=== PATIENT | female | born 1970 | race African-American/Black ===

== ENCOUNTER 2017-05-29 21:57 | Inpatient (IN) | payer OTHER ==
[2017-05-29] MEDS ORDERED: Acetaminophen 325 MG TAB ONE (22:25)
[2017-05-29] MEDS ORDERED: Nitroglycerin 2% Ointment 1 INCH/1 GM Packet ONE (22:25)
--- NOTE | 2017-05-29 22:33 | RAD ---
PORTABLE CHEST ONE VIEW 05/29/17 at 10:28 p.m. HISTORY: Chest pain. FINDINGS: Comparison is made with exam of 03/09/17. The heart size is normal. The lungs are well expanded without focal areas of consolidation, pneumoth oraces or pleural effusions. IMPRESSION: No radiographic evidence of acute cardiopulmonary process. POS: [facility]
[2017-05-29 22:37] LABS: #Eosinphils 0.2 thou/uL (0.0-0.7); #Lymphocytes 3.2 thou/uL (1.20-3.40); #Monocytes 0.6 thou/uL (0.11-0.59); %Basophils 0.1 % (0.0-1.0); %Eosinophils 2.8 % (0.0-10.0); %Lymphocytes 45.6 % (21.0-51.0); %Monocytes 8.2 % (0.0-10.0); Hematocrit 38.5 % (36.0-47.0); Mean Platelet Volume 6.3 fL (7.4-10.4); White Blood Cell (WBC) Count 6.9 thou/uL (4.8-10.8)
[2017-05-29 22:58] LABS: ALT (SGPT) 13 U/L (8-55); AST (SGOT) 17 U/L (5-34); Alkaline Phosphatase 133 U/L (40-150); Anion Gap 12 mmol/L (10-20); BUN (Urea Nitrogen) 10 mg/dL (7.0-18.7); Bilirubin, Total 0.4 mg/dL (0.2-1.2); CK (CPK) 90 U/L (29-168); Calc. Creatinine Clearance 0 mL/min (70-130); Calcium 9.1 mg/dL (7.8-10.44); Carbon Dioxide 24 mmol/L (22-29); Chloride 105 mmol/L (98-107); Estimated GFR-MDRD Greater than 90; Globulin 4.1 g/dL (2.4-3.5); Protein, Total 7.9 g/dL (6.0-8.3)
[2017-05-29 23:03] LABS: Troponin I Less than 0.010 ng/mL (< 0.028)
[2017-05-30] MEDS ORDERED: Metoclopramide HCl 10 MG/2 ML VIAL ONE (01:40)
[2017-05-30] MEDS ORDERED: diphenhydrAMINE 50 MG/ML VIAL ONE (01:40)
[2017-05-30] MEDS ORDERED: Enoxaparin Sodium 100 MG/ML SYRINGE ONE (01:40)
[2017-05-30 02:53] LABS: Troponin I Less than 0.010 ng/mL (< 0.028)
[2017-05-30 03:40] VITALS: BMI 41.9
[2017-05-30 06:04] LABS: Troponin I Less than 0.010 ng/mL (< 0.028)
--- NOTE | 2017-05-30 08:24 | CT ---
PRELIMINARY REPORT/[facility]/EMERGENCY AFTER HOURS PROCEDURE: EXAM: CT Angiography Chest With Intravenous Contrast CLINICAL HISTORY: 47 years old female; Pain; Chest pain; Type not specified; Patient HX: R/O pe TECHNIQUE: Multiplanar, multislice spiral CT scanning of the chest was performed following IV contrast administ ration from the sternal notch through the upper abdomen. Axial images were reconstructed at 2.5 mm i ntervals and slice thickness. Multiplanar reformatted images were created and reviewed. CONTRAST: 100 mL of ISOVUE administered intravenously. COMPARISON: None FINDINGS: Lungs: There is no pneumonia or mass. There is no atelectasis. Pleura: There is no pleural effusion. There is no pneumothorax. Heart: Heart size is normal. There is no pericardial effusion. Pulmonary vasculature: There is diminished density in the posterior segment of the right upper lobe pulmonary artery compared to the remaining pulmonary arteries. On the oblique images, this is more apparent as a filling defect and this is consistent with a pulmonary embolism. This is best seen on image 40, series 401. There are no additional pulmonary emboli. Aida and mediastinum: There is no hilar or mediastinal mass or adenopathy. Thoracic aorta/vascular: There is no thoracic aortic aneurysm or dissection. The imaged brachiocephalic arteries are unremarkable. Imaged upper abdomen: There are multiple approximately 1 cm and smaller nodules in the left upper qu adrant probably representing accessory splenules but cannot exclude small lymph nodes. Remainder of the imaged upper abdomen is unremarkable. Musculoskeletal system: Unremarkable Chest/body wall soft tissues: Unremarkable Thyroid: Unremarkable IMPRESSION: Right upper lobe pulmonary embolism. No acute pneumonia. THIS REPORT CONTAINS FINDINGS THAT MAY BE CRITICAL TO PATIENT CARE. The findings were verbally commu nicated via telephone conference with Emily Carvalho at 1:37 AM CDT on 05/30/2017. The findings were acknowledged and understood. Thank you for allowing us to participate in the care of your patient. Dictated and Authenticated by: Arthur Strong MD 05/30/2017 1:38 AM Central Time ([place] \T\ Carlos Alberto) FINAL REPORT CTA CHEST WITH 3D VOLUME RENDERING: FINDINGS/IMPRESSION: I agree with the above-provided preliminary interpretation provided above. Subtle filling defect involving the segmental/subsegmental branches of the right upper lobe indicati ng peripheral pulmonary embolus. POS: [facility]
--- NOTE | 2017-05-30 09:06 | HP ---
This is HELIO Anders-Osmar, dictating for Tom Hernández M.D. REASON FOR ADMISSION: Chest pain. HISTORY OF PRESENT ILLNESS: This is a pleasant 47-year-old female with no significant past medical history, who was actually seen in our clinic less than 3 months ago where she had atypical chest maile n. She has already been to the emergency room several times and OR was ruled out by serial cardiac enzymes; however, she was never admitted to the hospital. I even sent her to Cardiology less than 3 months ago or so where she did have a stress test that was unremarkable. She states she presented to the hospital after having chest pain, left-sided that lasted roughly 30 minutes. She did describe shortness of breath with this, but denied any radiation of her symptoms, no nausea, vomiting, or diaphoresis. Once upon evaluation in the emergency room, she had a series o f tests, first OR was ruled out by serial cardiac enzymes; however, she did have a CTA of the chest which did show pulmonary emboli. For this reason, she was admitted to the hospital for further eval uation and treatment. The patient denies any long road trips. She also denies being lay up in the bed. The patient state s she is quite active. The patient also denies any history of blood clotting disorder in her family or herself. PAST MEDICAL HISTORY: 1. GERD. 2. Chronic low back pain. 3. Questionable gastroparesis. 4. History of anxiety and depression. PAST SURGICAL HISTORY: 1. Hysterectomy in the past. 2. EGD showing chronic gastritis. 3. She did have cardiac catheterization also in 2012 that was negative for coronary artery disease. 4. Right great toe bunion surgery. 5. Left knee surgery. ALLERGIES: None. MEDICATIONS: Topamax 25 mg every day, omeprazole 20 mg every day, duloxetine 30 mg every day, verap catalina 120 mg t.i.d. SOCIAL HISTORY: She lives at home. She does not smoke. She does not drink alcohol. FAMILY HISTORY: Mother had hypertension. Father in a motor vehicle accident at age 62. REVIEW OF SYSTEMS: GENERAL: No weight gain or loss, weakness, fatigue, fever or chills. HEENT: N o diplopia, amaurosis fugax, tinnitus, sore throat or hoarseness. CARDIOVASCULAR: See history of p resent illness. PULMONARY: See history of present illness. GASTROINTESTINAL: Does have GERD. De nies any constipation, GI bleed or diarrhea. GENITOURINARY: No dysuria, nocturia, oliguria or poly uria. ENDOCRINE: No polyphagia, polydipsia or heat or cold intolerance. MUSCULOSKELETAL: Admits to arthralgias, especially in the knees. No lupus or myopathy. NEUROLOGIC: No history of TIA or s eizure. All systems are negative. PHYSICAL EXAMINATION: GENERAL: Pleasant female who appears to be in no acute distress. She denies currently any chest pa in. She also denies any shortness of breath at this time. VITAL SIGNS: Her blood pressure is 105/55, pulse 74, respirations 18. She is afebrile. NECK: Supple with no increased JVP or carotid bruit. Carotid had good upstroke with no thyromegaly . COR: Regular rate and rhythm with normal first and second heart sounds normal. There is no murmur, S3, S4, or thrills. CHEST: Symmetrical and clear to auscultation and percussion. ABDOMEN: Soft, nontender with normoactive bowel sounds. There is no bruit or organomegaly. EXTREMITIES: No edema or cyanosis. Palpable pedal pulses. SKIN: There is no evidence of ulcers, lesions, or rash. NEUROLOGIC: She is awake, alert, and oriented to person, place, and time. LABORATORY DATA AND IMAGING: Her CBC is normal. Her D-dimer was elevated. Her CMP was also normal . Her cardiac enzymes were normal as enumerated above. She again did have CTA which showed right u pper lobe PE. ASSESSMENT: 1. Chest pain secondary to right upper lobe pulmonary embolism. 2. Anxiety. 3. Depression. 4. History of migraine headaches. PLAN: 1. We will go ahead and check the patient for a blood clotting disorder, i.e. obtain an antiphospho lipid profile as well as a Leiden factor V. 2. We will also continue with blood thinners and we will also start Eliquis 10 mg b.i.d. The patie nt did verbalize understanding and all questions answered to satisfaction.
[2017-05-30] MEDS: Apixaban 5 MG TAB PO SCH ×2 (10:40→20:44)
[2017-05-30] MEDS: Topiramate 25 MG TAB PO SCH (10:50)
[2017-05-30 11:40] LABS: PTT 40.1 SEC (22.9-36.1); Prothrombin Time 13.3 SEC (12.0-14.7)
--- NOTE | 2017-05-30 12:57 | ULT ---
BILATERAL LOWER EXTREMITY VENOUS DUPLEX EXAM: 05/30/17 HISTORY: History of PE with a recent CT showing pulmonary embolus. Evaluation for source. Real time color doppler evaluation of the right and left lower extremities was performed from groin to calf. This includes evaluation of the common femoral, superficial and profunda femoral, saphenous , popliteal and trifurcation veins. This shows patent deep venous systems bilaterally. There is norm al compressibility and augmentation. There is no evidence of DVT. IMPRESSION: No evidence of DVT of either lower extremity. POS: [facility]
[2017-05-30] MEDS ORDERED: Enoxaparin Sodium 100 MG/ML SYRINGE SC SCH (13:00)
[2017-05-30] MEDS ORDERED: ISOVUE-370 76%-LOCM 1 ML ONE (13:37)
[2017-05-30] MEDS ORDERED: HYDROcodone/Acetaminophen 7.5/325 mg Tablet PO PRN (15:26)
--- NOTE | 2017-05-31 08:00 | PRG ---
DATE OF SERVICE: 05/31/2017. This is HELIO Anders-Osmar, dictating for Tom Hernández M.D. SUBJECTIVE: The patient is still having a little bit of chest pain. Her blood pressure is low this morning, but she is asymptomatic. She denies any dizziness, weakness, or felt like she was going t o pass out. Her thrombosis panel is still pending. PHYSICAL EXAMINATION: GENERAL: Upon evaluation, she is awake. She is alert and oriented. She appears to be in no acute distress. VITAL SIGNS: As above. NECK: Supple with no increased JVP or carotid bruit. Carotid had good upstroke with no thyromegaly . COR: Regular rate and rhythm. CHEST: Symmetrical. Clear to auscultation and percussion. ABDOMEN: Soft, nontender with normoactive bowel sounds. No bruit or organomegaly. EXTREMITIES: No edema or cyanosis. Palpable pedal pulses. SKIN: There is no evidence of ulcer, lesion, or rash. NEUROLOGIC: She is awake, alert, and oriented to person, place, and time. LABORATORY DATA: Her lower extremity venous Doppler was negative. ASSESSMENT: 1. Upper lobe pulmonary embolism. 2. History of depression and anxiety. PLAN: We will continue the patient on Eliquis. We will keep here until no chest pain and then send home on Eliquis.
[2017-05-31] MEDS ORDERED: FLU VACC QS2017-18 36 mo. & older 0.5 ML SYRINGE IM ONE (09:00)
[2017-05-31 09:23] LABS: DRVVT Screen 37.1 SEC (20-50)
[2017-05-31] MEDS: Apixaban 5 MG TAB PO SCH ×2 (09:53→19:59)
[2017-05-31] MEDS: Topiramate 25 MG TAB PO SCH (13:59)
[2017-05-31] MEDS ORDERED: Sodium Chloride 0.9% 0 ML ONE (15:30)
[2017-06-01 05:52] LABS: #Eosinphils 0.1 thou/uL (0.0-0.7); #Lymphocytes 2.6 thou/uL (1.20-3.40); #Monocytes 0.5 thou/uL (0.11-0.59); #Neutrophils 3.8 thou/uL (1.40-6.50); %Basophils 0.2 % (0.0-1.0); %Eosinophils 1.6 % (0.0-10.0); %Lymphocytes 36.9 % (21.0-51.0); %Monocytes 7.3 % (0.0-10.0); Hematocrit 38.8 % (36.0-47.0); Hematocrit 38.9 % (36.0-47.0); Mean Platelet Volume 6.3 fL (7.4-10.4); Red Blood Cell (RBC) Count 4.42 mill/uL (4.20-5.40)
[2017-06-01 06:13] LABS: Calc. Creatinine Clearance 167 mL/min (70-130); Estimated GFR-MDRD Greater than 90
[2017-06-01] MEDS: Apixaban 5 MG TAB PO SCH (09:48)
[2017-06-01] MEDS: Topiramate 25 MG TAB PO SCH (09:49)
[2017-06-01 12:39] VITALS: BP 136/80; TEMP 97.8
--- NOTE | 2017-06-01 17:02 | DIS ---
FINAL DIAGNOSES: 1. Pulmonary embolism. 2. Depression. 3. Anxiety. 4. Chest pain. COMPLICATIONS: None. PROCEDURES: None. CONSULTANTS: None. HOSPITAL COURSE: This is a pleasant female, who presents with chest pain. She did undergo a CTA an d was found to have upper lobe PE, therefore, started on anticoagulation therapy. DVT was ruled out by bilateral lower extremity venous Doppler. Her home medications were resumed. She did have lab w ork, which showed her CBC to be normal. Her CMP was normal. Her cardiac enzymes were normal. Her antiphospholipid panel/thrombus panel was pending. The patient had no chest pain and no shortness o f breath. Her vital signs were stable. DISCHARGE MEDICATIONS: She was discharged home on, 1. Eliquis 10 mg b.i.d. 2. Elavil 25 mg every day. 3. Motrin p.r.n. 4. Mobic 15 mg every day. 5. Protonix 40 mg every day. 6. Tramadol 50 mg q.6 hours p.r.n. pain. 7. Cymbalta 30 mg every day. 8. Topamax 25 mg every day. 9. Verapamil 120 mg t.i.d. DIET: Regular diet. ACTIVITIES: As tolerated by the patient. FOLLOWUP: Will be on Saturday and at that time, we will decrease her Eliquis. The patient verbali zed understanding and all questions were answered to satisfaction. Total time spent with this patient after reviewing the chart and writing orders and assessing the pa tient was 30 minutes. GABY Adners dictating a discharge summary on Tom Hernández M.D.
[2017-06-03 13:18] LABS: Protein C Activity 131 % (78-152)
[2017-06-03 15:20] LABS: Beta-2-GPI IgM Autoabs <10 SMU (.); Beta-2-Glycoprotein IgA Abs <10 SAU (.); Beta-2-Glycoprotein IgG Abs <10 SGU (.)
[2017-06-04 18:11] LABS: Activated Protein C Resistance 2.9 ratio (.)
== END 2017-06-01 12:47 | disposition home or self-care (01) | DRG 176 ==
LOC: ERS 21:57 → 2NO 05-30 01:55
PROVIDERS: ADMIT Specialist; ATTEND Specialist
DX: I26.99 Other pulmonary embolism without acute cor pulmonale (principal); F32.9 Major depressive disorder, single episode, unspecified; K21.9 Gastro-esophageal reflux disease without esophagitis; G89.29 Other chronic pain; M54.5 Low back pain; F41.9 Anxiety disorder, unspecified; M19.90 Unspecified osteoarthritis, unspecified site
CPT/HCPCS: 36415; 71010; 71275; 80053; 81240; 82553; 82565; 83090; 84484; 84702; 85014; 85018; 85025; 85049; 85240; 85250; 85300; 85303; 85305; 85307; 85379; 85598; 85610; 85613; 85730; 86146; 86147; 90471; 90682; 93005; 93970; 96361; 96372; 96374; 96375; A4216; G0008; J1200; J1650; J2765; Q2036

== ENCOUNTER 2017-06-20 22:19 | Emergency (ER) | payer OTHER ==
[2017-06-21] MEDS ORDERED: Promethazine 25 MG TAB ONE (00:06)
[2017-06-21] MEDS ORDERED: diphenhydrAMINE 50 MG/ML VIAL ONE (00:06)
[2017-06-21] MEDS ORDERED: methylPREDNISolone Sod Succ/PF 125 MG/2 ML VIAL ONE (00:06)
[2017-06-21] MEDS ORDERED: Promethazine HCl 25 MG/ML VIAL ONE (00:07)
== END 2017-06-21 03:38 | disposition home or self-care (01) ==
LOC: ERS 22:19
DX: R51 Headache (principal); K21.9 Gastro-esophageal reflux disease without esophagitis; Z86.711 Personal history of pulmonary embolism; F41.9 Anxiety disorder, unspecified; F32.9 Major depressive disorder, single episode, unspecified; Z79.899 Other long term (current) drug therapy
CPT/HCPCS: 96361; 96374; 96375; J1200; J2550; J2930

== ENCOUNTER 2017-07-09 09:55 | Emergency (ER) | payer OTHER ==
[~2017-07-09 09:55] MED LIST: ISOVUE-370 76%-LOCM 1 ML ONE
[2017-07-09 10:33] LABS: #Eosinphils 0.1 thou/uL (0.0-0.7); #Monocytes 0.4 thou/uL (0.11-0.59); #Neutrophils 2.8 thou/uL (1.40-6.50); %Basophils 0.1 % (0.0-1.0); %Eosinophils 1.4 % (0.0-10.0); %Lymphocytes 38.1 % (21.0-51.0); %Monocytes 7.3 % (0.0-10.0); Hematocrit 37.2 % (36.0-47.0); Mean Platelet Volume 6.6 fL (7.4-10.4); Red Blood Cell (RBC) Count 4.17 mill/uL (4.20-5.40); White Blood Cell (WBC) Count 5.2 thou/uL (4.8-10.8)
--- NOTE | 2017-07-09 10:50 | RAD ---
PORTABLE CHEST: History: Chest pain. Shortness of breath. Comparison: 05-29-17 FINDINGS: Lung mcrae remain clear. Heart and mediastinum are unremarkable. No evidence of vascular congestion. IMPRESSION: Unremarkable portable chest. POS: [facility]
[2017-07-09 10:56] LABS: ALT (SGPT) 12 U/L (8-55); AST (SGOT) 20 U/L (5-34); Alkaline Phosphatase 98 U/L (40-150); Anion Gap 11 mmol/L (10-20); BUN (Urea Nitrogen) 10 mg/dL (7.0-18.7); Bilirubin, Total 0.7 mg/dL (0.2-1.2); CK (CPK) 114 U/L (29-168); Calc. Creatinine Clearance 0 mL/min (70-130); Calcium 9.4 mg/dL (7.8-10.44); Carbon Dioxide 24 mmol/L (22-29); Chloride 104 mmol/L (98-107); Estimated GFR-MDRD Greater than 90; Globulin 4.3 g/dL (2.4-3.5); Lipase 13 U/L (8-78); Protein, Total 8.2 g/dL (6.0-8.3)
[2017-07-09 11:01] LABS: Troponin I Less than 0.010 ng/mL (< 0.028)
[2017-07-09] MEDS ORDERED: Morphine 4 MG/ML VIAL ONE (11:21)
[2017-07-09] MEDS ORDERED: Ondansetron HCl/PF 4 MG/2 ML Vial ONE (11:50)
--- NOTE | 2017-07-09 12:14 | CT ---
CTA THORAX WITH CONTRAST: (Computed Tomographic Angiography, chest(noncoronary) with contrast material, and image postprocessin g) (PE protocol) HISTORY: 47-year-old female with acute chest pain and dyspnea. History of prior pulmonary thromboembolism. TECHNIQUE: IV injection of iodinated contrast: 100 ml Isovue 370 Scan acquisition timing attempted to coincide with iodinated contrast bolus reaching maximal density in pulmonary arteries. 3D MIP reconstructions. FINDINGS: Pulmonary thromboembolism: None. Lungs: Clear. Pneumothorax: None. Pleural effusion: None. Thoracic aorta: No aneurysm or dissection. Mediastinum: No lymphadenopathy or other mass. Aida: No lymphadenopathy or other mass. IMPRESSION: Normal. akash POS: [facility]
== END 2017-07-09 13:46 | disposition home or self-care (01) ==
LOC: ERS 09:55
DX: R07.89 Other chest pain (principal); G43.909 Migraine, unspecified, not intractable, without status migrainosus; K21.9 Gastro-esophageal reflux disease without esophagitis; M19.90 Unspecified osteoarthritis, unspecified site; F41.9 Anxiety disorder, unspecified; F32.9 Major depressive disorder, single episode, unspecified; Z79.01 Long term (current) use of anticoagulants; Z79.899 Other long term (current) drug therapy
CPT/HCPCS: 71010; 71275; 80053; 82553; 83690; 83880; 84484; 85025; 85379; 93005; 96374; 96375; J2270; J2405

== ENCOUNTER 2017-10-21 10:33 | Outpatient (CLI) | payer OTHER | END 2017-10-21 10:34 | disposition home or self-care (01) | LOC: BICRAD 10:33 | PROVIDERS: ATTEND Internal Medicine Gastroenterology | DX: K59.01 Slow transit constipation (principal); R07.89 Other chest pain; R10.84 Generalized abdominal pain | CPT/HCPCS: 74019 ==

== ENCOUNTER 2017-10-28 16:21 | Outpatient (CLI) | payer OTHER | END 2017-10-28 16:22 | disposition home or self-care (01) | LOC: BICRAD 16:21 | PROVIDERS: ATTEND Nurse Practitioner Family | DX: M25.562 Pain in left knee (principal); M17.12 Unilateral primary osteoarthritis, left knee ==

== ENCOUNTER 2017-12-17 11:42 | Outpatient (CLI) | payer OTHER | END 2017-12-17 11:43 | disposition home or self-care (01) | LOC: BICRAD 11:42 | PROVIDERS: ATTEND Specialist | DX: M25.531 Pain in right wrist (principal); M25.532 Pain in left wrist; M85.641 Other cyst of bone, right hand ==

== ENCOUNTER 2017-12-23 12:28 | Outpatient (CLI) | payer OTHER | END 2017-12-23 12:29 | disposition home or self-care (01) | LOC: BICRAD 12:28 | PROVIDERS: ATTEND Specialist | DX: M19.021 Primary osteoarthritis, right elbow (principal) ==

== ENCOUNTER 2018-01-14 14:43 | Outpatient (CLI) | payer OTHER | END 2018-01-14 14:44 | disposition home or self-care (01) | LOC: BICRAD 14:43 | PROVIDERS: ATTEND Internal Medicine | DX: Z02.71 Encounter for disability determination (principal) | CPT/HCPCS: 72100 ==

== ENCOUNTER → 2018-01-15 | Day surgery (SDC) | payer OTHER | LOC: ENDO/OP 10:46 | PROVIDERS: ATTEND Internal Medicine Gastroenterology | DX: R07.89 Other chest pain (principal); K58.1 Irritable bowel syndrome with constipation; K59.03 Drug induced constipation | CPT/HCPCS: 91010; 91034 ==

== ENCOUNTER 2018-03-19 12:35 | Outpatient (CLI) | payer OTHER ==
[~2018-03-19 12:35] MED LIST changes: -ISOVUE-370 76%-LOCM 1 ML ONE; +Magnevist 469MG/ML 20 ML VIAL ONE
--- NOTE | 2018-03-19 14:54 | MRI ---
MRI OF RIGHT HUMERUS WITH AND WITHOUT CONTRAST ENHANCEMENT: History: Mass in right upper extremity. Patient states she feels a bump around her elbow region. FINDINGS: The area of concern was marked with two markers which are along the anterior and slightly more ulnar side of the more distal humerus. This examination was not tailored for evaluation of the elbow but the ulnar collateral ligament and l ateral collateral ligamentous complexes appear unremarkable. The common flexor and extensor tendon are also normal in appearance. The triceps tendon insertion is normal. The distal biceps tendon insertion was not visualized on this study. There is no evidence of any mass seen within the area of concern. I do not appreciate any definite fe atures that would suggest any type of lipoma. IMPRESSION: Unremarkable MRI of the distal right humerus region. No evidence of any mass or abnormal enhancement. No underlying muscle abnormality. POS: [facility]
== END 2018-03-19 12:36 | disposition home or self-care (01) ==
LOC: SCSMRI 12:35
PROVIDERS: ATTEND Orthopaedic Surgery
DX: R22.31 Localized swelling, mass and lump, right upper limb (principal)
CPT/HCPCS: A9579

== ENCOUNTER 2018-09-01 14:06 | Outpatient (CLI) | payer OTHER ==
--- NOTE | 2018-09-01 17:54 | MRI ---
MRI LEFT KNEE WITHOUT CONTRAST: HISTORY: Knee pain. COMPARISON: Knee radiograph from 2018. FINDINGS: Medial meniscus: There is a chronic undersurface flap tear and likely prior meniscectomy changes of the medial meniscal body and posterior horn. There is approximately 50% loss of volume with degenera tive signal extending to the root attachment. Lateral meniscus: Intact. The ACL, PCL, MCL, and LCL are all intact. Extensor mechanism: Low grade proximal patella tendinosis. The quadriceps tendon and patella are in tact. CARTILAGE Patellofemoral compartment: Intact. Medial compartment: Intact. Lateral compartment: Intact. Muscles: Normal muscle signal and bulk. IMPRESSION: 1. Likely prior partial meniscectomy change of the body and posterior horn of the medial meniscus wi th loss of volume, approximately 50%. 2. There is subsequent small medial compartment peripheral rim osteophytes of the medial femoral con dyle and medial tibial plateau. POS: [facility]
== END 2018-09-01 14:07 | disposition home or self-care (01) ==
LOC: SCSMRI 14:06
PROVIDERS: ATTEND Specialist
DX: M25.562 Pain in left knee (principal); M25.762 Osteophyte, left knee; Z98.890 Other specified postprocedural states

== ENCOUNTER 2018-09-24 09:41 | Outpatient (CLI) | payer OTHER ==
--- NOTE | 2018-09-24 10:17 | RAD ---
TWO TO 3 VIEW LUMBAR SPINE SERIES: INDICATION: Back pain. FINDINGS: Lumbar spine vertebral body height and alignment are maintained. Disk space heights are preserved wi th the exception of slight narrowing at the L5-S1 level. There is mild facet sclerosis inferiorly. IMPRESSION: Mild degenerative change without acute osseous abnormality of the lumbar spine. POS: [facility]
== END 2018-09-24 09:42 | disposition home or self-care (01) ==
LOC: BICRAD 09:41
PROVIDERS: ATTEND Specialist
DX: M54.5 Low back pain (principal); M47.816 Spondylosis without myelopathy or radiculopathy, lumbar region
CPT/HCPCS: 72100

== ENCOUNTER 2019-04-27 10:15 | Outpatient (CLI) | payer OTHER ==
--- NOTE | 2019-04-27 12:09 | RAD ---
LUMBAR SPINE SERIES 3 VIEWS: Date: 04/27/19 HISTORY: Back pain. FINDINGS: Vertebral bodies are normal in height. Small osteophytes are seen along the course of the spine witho ut disc narrowing. Pedicles are intact. No spondylolisthesis. IMPRESSION: Minimal arthritic changes of the spine. POS: [facility]
== END 2019-04-27 10:16 | disposition home or self-care (01) ==
LOC: RAD 10:15
PROVIDERS: ATTEND Specialist
DX: M48.061 Spinal stenosis, lumbar region without neurogenic claudication (principal); M54.5 Low back pain; M46.96 Unspecified inflammatory spondylopathy, lumbar region
CPT/HCPCS: 72100

== ENCOUNTER 2019-06-10 07:43 | Emergency (ER) | payer OTHER ==
[2019-06-10] MEDS ORDERED: Acetaminophen 500 MG TAB ONE (08:18)
[2019-06-10 09:17] LABS: #Eosinphils 0.1 thou/uL (0.0-0.7); #Lymphocytes 2.6 thou/uL (1.20-3.40); #Monocytes 0.4 thou/uL (0.11-0.59); #Neutrophils 2.7 thou/uL (1.40-6.50); %Basophils 0.6 % (0.0-1.0); %Eosinophils 1.2 % (0.0-10.0); %Lymphocytes 43.9 % (21.0-51.0); %Monocytes 7.2 % (0.0-10.0); %Neutrophils 47.1 % (42.0-75.0); Hemoglobin 13.5 g/dL (12.0-16.0); Mean Corpuscular HGB CONC 33.3 g/dL (32.0-36.0); Mean Corpuscular Hemoglobin 28.3 pg (27.0-31.0); Mean Corpuscular Volume 84.7 fL (78.0-98.0); Mean Platelet Volume 7.2 fL (7.4-10.4); Platelet Count 305 thou/uL (130-400); RBC Distribution Width 13.5 % (11.5-14.5); Red Blood Cell (RBC) Count 4.77 mill/uL (4.20-5.40); White Blood Cell (WBC) Count 5.8 thou/uL (4.8-10.8)
[2019-06-10 09:38] LABS: ALT (SGPT) 12 U/L (8-55); AST (SGOT) 17 U/L (5-34); Albumin 4.4 g/dL (3.5-5.0); Alkaline Phosphatase 110 U/L (40-110); Anion Gap 13 mmol/L (10-20); BUN (Urea Nitrogen) 11 mg/dL (7.0-18.7); Bilirubin, Total 0.6 mg/dL (0.2-1.2); Calc. Creatinine Clearance 0 mL/min (70-130); Calcium 9.6 mg/dL (7.8-10.44); Carbon Dioxide 24 mmol/L (22-29); Chloride 106 mmol/L (98-107); Estimated GFR-MDRD Greater than 90; Globulin 3.8 g/dL (2.4-3.5); Glucose 95 mg/dL (70-105); Potassium 4.5 mmol/L (3.5-5.1); Protein, Total 8.2 g/dL (6.0-8.3); Sodium 138 mmol/L (136-145)
[2019-06-10] MEDS ORDERED: diphenhydrAMINE 50 MG/ML VIAL ONE (09:39)
[2019-06-10] MEDS ORDERED: Ketorolac Tromethamine 30 MG/ML VIAL ONE (09:39)
[2019-06-10] MEDS ORDERED: Promethazine HCl 25 MG/ML VIAL ONE (09:39)
--- NOTE | 2019-06-10 12:28 | CT ---
CT HEAD NONCONTRAST DATE: 06/10/19 HISTORY: Headache. COMPARISON: 01/11/15. FINDINGS: There is no evidence of acute intracranial hemorrhage or infarct. The ventricles appear normal in siz e, shape, and position. There is no mass effect or shift of midline structures. Visualized paranasal sinuses remain well aerated. IMPRESSION: No acute intracranial abnormalities are demonstrated. POS: [facility]
== END 2019-06-10 13:12 | disposition home or self-care (01) ==
LOC: ERS 07:43
DX: G43.909 Migraine, unspecified, not intractable, without status migrainosus (principal); K21.9 Gastro-esophageal reflux disease without esophagitis; M19.90 Unspecified osteoarthritis, unspecified site; F41.9 Anxiety disorder, unspecified; F32.9 Major depressive disorder, single episode, unspecified; Z86.711 Personal history of pulmonary embolism; Z79.899 Other long term (current) drug therapy; Z79.01 Long term (current) use of anticoagulants
CPT/HCPCS: 70450; 80053; 85025; 96365; 96366; 96375; J1200; J1885; J2550

== ENCOUNTER 2019-07-06 13:45 | Outpatient (CLI) | payer OTHER ==
--- NOTE | 2019-07-06 16:29 | RAD ---
LUMBAR SPINE SERIES 3 VIEWS: Date: 07/06/19 HISTORY: Chronic low back pain. COMPARISON: 04/27/19 study. FINDINGS: Vertebral bodies are normal in height. Small osteophytes are seen without significant disc narrowing. Pedicles are intact. No spondylolisthesis. IMPRESSION: Minimal arthritic changes of the spine. POS: [facility]
== END 2019-07-06 13:46 | disposition home or self-care (01) ==
LOC: SCSRAD 13:45
PROVIDERS: ATTEND Psychiatry & Neurology Neurology
DX: M54.5 Low back pain (principal); M47.816 Spondylosis without myelopathy or radiculopathy, lumbar region
CPT/HCPCS: 72100

== ENCOUNTER 2019-11-19 13:34 | Outpatient (CLI) | payer OTHER ==
--- NOTE | 2019-11-19 14:23 | RAD ---
TWO VIEWS OF THE CHEST: 11/19/19 COMPARISON: 10/05/15 HISTORY: Pain in the throat and chest. Left chest pain. FINDINGS: Two views of the chest show normal sized cardiomediastinal silhouette. There is no evidence of consol idation, mass, or pleural effusion. The bones are unremarkable. IMPRESSION: No evidence of acute cardiopulmonary disease. POS: [facility]
== END 2019-11-19 13:35 | disposition home or self-care (01) ==
LOC: BICRAD 13:34
PROVIDERS: ATTEND Specialist
DX: J98.11 Atelectasis (principal); R07.9 Chest pain, unspecified; R07.0 Pain in throat
CPT/HCPCS: 71046

== ENCOUNTER 2019-12-08 09:58 | Outpatient (CLI) | payer OTHER ==
--- NOTE | 2019-12-08 13:49 | MMO ---
Bilateral MAMMO Bilat Screen DDI. CLINICAL HISTORY: Patient is 49 years old and is seen for screening. The patient has no family history of breast cancer. The patient has no personal history of cancer. VIEWS: The views performed were: bilateral craniocaudal and bilateral mediolateral oblique. FILMS COMPARED: The present examination has been compared to prior imaging studies performed at [facility] on 12/15/2001, and at [facility] on 05/17/2016. This study has been interpreted with the assistance of computer-aided detection. MAMMOGRAM FINDINGS: The breasts are heterogeneously dense, which could obscure a lesion on mammography. There is a questionable nodular density in the left mid breast on CC view. In the right breast, there are no suspicious masses, calcifications or areas of architectural distortion. IMPRESSION: FINDING IN THE LEFT BREAST REQUIRES ADDITIONAL EVALUATION. SPOT COMPRESSION IS RECOMMENDED. AN ULTRASOUND EXAM IS RECOMMENDED IF NEEDED. ADDITIONAL IMAGING. ACR BI-RADS Category 0 - Incomplete: Need additional imaging evaluation. [facility] will notify the patient of the need for additional imaging services. MAMMOGRAPHY NOTE: 1. A negative mammogram report should not delay a biopsy if a dominant of clinically suspicious mass is present. 2. Approximately 10% to 15% of breast cancers are not detected by mammography. 3. Adenosis and dense breasts may obscure an underlying neoplasm. Reported by: NISA WANG MD Electonically Signed: [id number]
== END 2019-12-08 09:59 | disposition home or self-care (01) ==
LOC: BICMAMMO 09:58
PROVIDERS: ATTEND Nurse Practitioner Family
DX: Z12.31 Encounter for screening mammogram for malignant neoplasm of breast (principal)
CPT/HCPCS: 77067

== ENCOUNTER 2019-12-15 10:08 | Outpatient (CLI) | payer OTHER ==
--- NOTE | 2019-12-15 10:31 | MMO ---
Left Breast MAMMO Unilat Diag DDI LT+VIKTOR. CLINICAL HISTORY: Patient is 49 years old and is seen for diagnostic exam. The patient has no family history of breast cancer. The patient has no personal history of cancer. VIEWS: The views performed were: left craniocaudal with tomosynthesis and left mediolateral with tomosynthesis. FILMS COMPARED: The present examination has been compared to prior imaging studies performed at [facility] on 12/15/2001, and at [facility] [place] on 05/17/2016, 12/08/2019 and 12/15/2019. This study has been interpreted with the assistance of computer-aided detection. MAMMOGRAM FINDINGS: The breast is heterogeneously dense, which could obscure a lesion on mammography. Additional views were performed. The previously seen abnormality is not definitely seen on the current study. There are no suspicious masses, suspicious calcifications, or new areas of architectural distortion. IMPRESSION: THERE IS NO MAMMOGRAPHIC EVIDENCE OF MALIGNANCY. A ROUTINE FOLLOW-UP MAMMOGRAM IN 1 YEAR IS RECOMMENDED. THE RESULTS OF THIS EXAM WERE SENT TO THE PATIENT. ACR BI-RADS Category 2 - Benign finding MAMMOGRAPHY NOTE: 1. A negative mammogram report should not delay a biopsy if a dominant of clinically suspicious mass is present. 2. Approximately 10% to 15% of breast cancers are not detected by mammography. 3. Adenosis and dense breasts may obscure an underlying neoplasm. Reported by: NISA WANG MD Electonically Signed: [id number]
== END 2019-12-15 10:09 | disposition home or self-care (01) ==
LOC: BICMAMMO 10:08
PROVIDERS: ATTEND Nurse Practitioner Family
DX: N63.20 Unspecified lump in the left breast, unspecified quadrant (principal)
CPT/HCPCS: G0279

== ENCOUNTER 2020-01-11 09:01 | Emergency (ER) | payer OTHER | END 2020-01-11 09:40 | disposition home or self-care (01) | LOC: ERS 09:01 | DX: K02.9 Dental caries, unspecified (principal); K21.9 Gastro-esophageal reflux disease without esophagitis; M19.90 Unspecified osteoarthritis, unspecified site; Z86.711 Personal history of pulmonary embolism; F41.9 Anxiety disorder, unspecified; F32.9 Major depressive disorder, single episode, unspecified; Z79.899 Other long term (current) drug therapy | CPT/HCPCS: 99282 ==

== ENCOUNTER 2020-09-15 12:37 | Outpatient (CLI) | payer OTHER ==
--- NOTE | 2020-09-15 15:23 | RAD ---
RIGHT ANKLE THREE VIEWS: 09/15/20 HISTORY: Ankle pain and swelling. No history of injury. There is soft tissue swelling adjacent to the lateral malleolus. I do not appreciate any fracture. Mi nimal arthritic changes seen. IMPRESSION: No acute injury. POS: [facility]
== END 2020-09-15 12:38 | disposition home or self-care (01) ==
LOC: BICRAD 12:37
PROVIDERS: ATTEND Specialist
DX: M25.571 Pain in right ankle and joints of right foot (principal)

== ENCOUNTER 2020-10-25 09:48 | Outpatient (CLI) | payer OTHER | END 2020-10-25 09:49 | disposition home or self-care (01) | LOC: BICRAD 09:48 | PROVIDERS: ATTEND Physician Assistant Medical | DX: K21.9 Gastro-esophageal reflux disease without esophagitis (principal); R06.02 Shortness of breath | CPT/HCPCS: 71046 ==

== ENCOUNTER 2021-05-21 22:57 | Emergency (ER) | payer OTHER ==
[~2021-05-21 22:57] MED LIST changes: +Iopamidol-370 76% 500 ML 1 ML ONE; -Magnevist 469MG/ML 20 ML VIAL ONE
[2021-05-22] MEDS ORDERED: Ketorolac Tromethamine 30 MG/ML VIAL ONE (00:02)
[2021-05-22 00:17] LABS: #Basophils 0.1 thou/uL (0.0-0.2); #Lymphocytes 1.6 thou/uL (1.20-3.40); #Monocytes 0.4 thou/uL (0.11-0.59); #Neutrophils 5.9 thou/uL (1.40-6.50); %Basophils 1.6 % (0.0-1.0); %Eosinophils 0.1 % (0.0-10.0); %Lymphocytes 20.3 % (21.0-51.0); %Monocytes 4.8 % (0.0-10.0); %Neutrophils 73.3 % (42.0-75.0); Hemoglobin 12.8 g/dL (12.0-16.0); Mean Corpuscular HGB CONC 33.4 g/dL (32.0-36.0); Mean Corpuscular Hemoglobin 28.8 pg (27.0-31.0); Mean Corpuscular Volume 86.3 fL (78.0-98.0); Platelet Count 328 thou/uL (130-400); RBC Distribution Width 13.7 % (11.5-14.5); Red Blood Cell (RBC) Count 4.44 mill/uL (4.20-5.40)
[2021-05-22 00:31] LABS: ALT (SGPT) 17 U/L (8-55); AST (SGOT) 21 U/L (5-34); Albumin 4.3 g/dL (3.5-5.0); Alkaline Phosphatase 111 U/L (40-110); Anion Gap 12 mmol/L (10-20); BUN (Urea Nitrogen) 14 mg/dL (7.0-18.7); Bilirubin, Total 0.4 mg/dL (0.2-1.2); Calc. Creatinine Clearance 0 mL/min (70-130); Calcium 10.1 mg/dL (7.8-10.44); Carbon Dioxide 26 mmol/L (22-29); Chloride 103 mmol/L (98-107); Globulin 4.4 g/dL (2.4-3.5); Glucose 112 mg/dL (70-105); Potassium 4.2 mmol/L (3.5-5.1); Protein, Total 8.7 g/dL (6.0-8.3); Sodium 137 mmol/L (136-145)
[2021-05-22] MEDS ORDERED: Ondansetron PF 4 MG/2 ML Vial ONE (02:45)
[2021-05-22] MEDS ORDERED: Morphine 4 MG/ML VIAL ONE (02:45)
== END 2021-05-22 08:00 | disposition home or self-care (01) ==
LOC: ERS 22:57
DX: R07.89 Other chest pain (principal); K21.9 Gastro-esophageal reflux disease without esophagitis; M19.90 Unspecified osteoarthritis, unspecified site; G43.909 Migraine, unspecified, not intractable, without status migrainosus; Z86.711 Personal history of pulmonary embolism; Z79.899 Other long term (current) drug therapy
CPT/HCPCS: 36415; 71045; 71275; 80053; 84484; 85025; 93005; 96374; 96375; J1885; J2270; J2405; Q9967

== ENCOUNTER 2021-10-03 07:26 | Outpatient (CLI) | payer OTHER | END 2021-10-03 07:27 | disposition home or self-care (01) | LOC: ULT 07:26 | PROVIDERS: ATTEND Physician Assistant Medical | DX: B18.1 Chronic viral hepatitis B without delta-agent (principal); R00.2 Palpitations; K76.9 Liver disease, unspecified | CPT/HCPCS: 76700 ==

== ENCOUNTER 2021-12-22 17:05 | Emergency (ER) | payer OTHER ==
[2021-12-22] MEDS ORDERED: Mag-Al 1200 mg/1200 mg/30 ML UDCUP ONE (17:29)
[2021-12-22] MEDS ORDERED: Aspirin Chewable 81 MG TAB ONE (17:29)
[2021-12-22] MEDS ORDERED: Lidocaine Viscous Sol 2% 15 ml UD Cup ONE (17:29)
[2021-12-22 17:55] LABS: #Eosinphils 0.1 thou/uL (0.0-0.7); #Lymphocytes 2.5 thou/uL (1.20-3.40); #Monocytes 0.6 thou/uL (0.11-0.59); #Neutrophils 3.6 thou/uL (1.40-6.50); %Basophils 0.1 % (0.0-1.0); %Eosinophils 1.1 % (0.0-10.0); %Lymphocytes 37.6 % (21.0-51.0); %Monocytes 8.2 % (0.0-10.0); Hemoglobin 11.9 g/dL (12.0-16.0); Mean Corpuscular HGB CONC 31.6 g/dL (32.0-36.0); Mean Corpuscular Hemoglobin 27.2 pg (27.0-31.0); Mean Corpuscular Volume 86.1 fL (78.0-98.0); Mean Platelet Volume 6.8 fL (7.4-10.4); Platelet Count 317 thou/uL (130-400); RBC Distribution Width 14.7 % (11.5-14.5); Red Blood Cell (RBC) Count 4.37 mill/uL (4.20-5.40); White Blood Cell (WBC) Count 6.7 thou/uL (4.8-10.8)
[2021-12-22 18:05] LABS: BHCG - Serum Negative (NEGATIVE); Pregs Control Background? CLEAR/WHITE (CLR/WHITE); Pregs Control Bar Appear? YES (CONTROL BAR)
[2021-12-22 18:20] LABS: ALT (SGPT) 10 U/L (8-55); AST (SGOT) 16 U/L (5-34); Albumin 3.8 g/dL (3.5-5.0); Alkaline Phosphatase 102 U/L (40-110); Anion Gap 9 mmol/L (10-20); BUN (Urea Nitrogen) 11 mg/dL (7.0-18.7); Bilirubin, Total 0.3 mg/dL (0.2-1.2); Calc. Creatinine Clearance 0 mL/min (70-130); Carbon Dioxide 30 mmol/L (22-29); Chloride 100 mmol/L (98-107); Glucose 98 mg/dL (70-105); Potassium 3.9 mmol/L (3.5-5.1); Protein, Total 7.8 g/dL (6.0-8.3); Sodium 135 mmol/L (136-145)
[2021-12-22] MEDS ORDERED: Morphine 4 MG/ML VIAL ONE (18:46)
[2021-12-22] MEDS ORDERED: Ondansetron PF 4 MG/2 ML Vial ONE (18:46)
== END 2021-12-22 20:32 | disposition home or self-care (01) ==
LOC: ERS 17:05
DX: R07.89 Other chest pain (principal); K21.9 Gastro-esophageal reflux disease without esophagitis; M19.90 Unspecified osteoarthritis, unspecified site; Z86.711 Personal history of pulmonary embolism; Z79.899 Other long term (current) drug therapy; Z79.01 Long term (current) use of anticoagulants
CPT/HCPCS: 36415; 71045; 71275; 80053; 84484; 84703; 85025; 85379; 93005; 96374; 96375; J2270; J2405; Q9967

== ENCOUNTER 2021-12-29 10:23 | Emergency (ER) | payer OTHER | END 2021-12-29 11:48 | disposition home or self-care (01) | LOC: ERS 10:23 | DX: H60.91 Unspecified otitis externa, right ear (principal); K21.9 Gastro-esophageal reflux disease without esophagitis; M19.90 Unspecified osteoarthritis, unspecified site; Z86.711 Personal history of pulmonary embolism | CPT/HCPCS: 99282 ==

== ENCOUNTER 2023-04-11 13:03 | Outpatient (CLI) | payer OTHER | END 2023-04-11 13:04 | disposition home or self-care (01) | LOC: RAD 13:03 | PROVIDERS: ATTEND Specialist | DX: M54.9 Dorsalgia, unspecified (principal); M47.816 Spondylosis without myelopathy or radiculopathy, lumbar region | CPT/HCPCS: 72100 ==

== ENCOUNTER 2023-04-20 10:59 | Emergency (ER) | payer OTHER ==
[2023-04-20] MEDS ORDERED: HYDROcodone/Acetaminophen 5/325 mg Tablet ONE (12:03)
== END 2023-04-20 13:21 | disposition home or self-care (01) ==
LOC: ERS 10:59
DX: M25.512 Pain in left shoulder (principal)
CPT/HCPCS: 93005

== ENCOUNTER 2023-05-12 13:50 | Emergency (ER) | payer OTHER ==
[2023-05-12] MEDS ORDERED: Acetaminophen 500 MG TAB ONE (14:16)
== END 2023-05-12 15:53 | disposition home or self-care (01) ==
LOC: ERS 13:50
DX: L03.116 Cellulitis of left lower limb (principal); K21.9 Gastro-esophageal reflux disease without esophagitis; E11.9 Type 2 diabetes mellitus without complications

== ENCOUNTER 2023-05-14 13:36 | Emergency (ER) | payer OTHER | END 2023-05-14 15:25 | disposition home or self-care (01) | LOC: ERS 13:36 | DX: L03.116 Cellulitis of left lower limb (principal); K21.9 Gastro-esophageal reflux disease without esophagitis; E11.9 Type 2 diabetes mellitus without complications; Z86.711 Personal history of pulmonary embolism; Z79.899 Other long term (current) drug therapy | CPT/HCPCS: 99283 ==

== ENCOUNTER 2023-06-06 12:44 | Outpatient (CLI) | payer OTHER | END 2023-06-06 12:45 | disposition home or self-care (01) | LOC: BICMAMMO 12:44 | PROVIDERS: ATTEND Specialist | DX: Z12.31 Encounter for screening mammogram for malignant neoplasm of breast (principal) | CPT/HCPCS: 77067 ==

== ENCOUNTER 2023-06-21 07:00 | Outpatient (CLI) | payer OTHER | END 2023-06-21 07:01 | disposition home or self-care (01) | LOC: BICULT 07:00 | PROVIDERS: ATTEND Plastic Surgery Surgery of the Hand | DX: M54.12 Radiculopathy, cervical region (principal); E01.0 Iodine-deficiency related diffuse (endemic) goiter; E04.2 Nontoxic multinodular goiter | CPT/HCPCS: 72040; 76536 ==

== ENCOUNTER 2023-06-30 17:38 | Emergency (ER) | payer OTHER ==
[~2023-06-30 17:38] MED LIST changes: -Iopamidol-370 76% 500 ML 1 ML ONE; +Iopamidol-370 76% 500 ML MDV (1 ML CHARGE) ONE
[2023-06-30] MEDS ORDERED: Acetaminophen 500 MG TAB ONE (20:29)
[2023-06-30 20:31] LABS: Hematocrit 39.2 % (36.0-47.0); Hemoglobin 12.3 g/dL (12.0-16.0); Mean Corpuscular HGB CONC 31.4 g/dL (32.0-36.0); Mean Corpuscular Hemoglobin 27.5 pg (27.0-31.0); Mean Corpuscular Volume 87.5 fl (78.0-98.0); Mean Platelet Volume 9.1 fL (7.4-10.4); Platelet Count 251 10x3/uL (130-400); RBC Distribution Width 14.7 % (11.5-14.5); Red Blood Cell (RBC) Count 4.48 mill/uL (4.20-5.40); White Blood Cell (WBC) Count 4.7 10x3/uL (4.8-10.8)
[2023-06-30 20:36] LABS: Delete Auto Diff?? YES; Manual Diff?? YES
[2023-06-30 20:50] LABS: BHCG - Serum Negative (NEGATIVE); Pregs Control Background? CLEAR/WHITE (CLR/WHITE); Pregs Control Bar Appear? YES (CONTROL BAR)
[2023-06-30 20:57] LABS: ALT (SGPT) 11 U/L (8-55); AST (SGOT) 19 U/L (5-34); Albumin 3.6 g/dL (3.5-5.0); Alkaline Phosphatase 94 U/L (40-110); Anion Gap 11 mmol/L (10-20); BUN (Urea Nitrogen) 11 mg/dL (9.8-20.1); Bilirubin, Total 0.2 mg/dL (0.2-1.2); Calc. Creatinine Clearance 0 mL/min (70-130); Calcium 9.5 mg/dL (7.8-10.44); Carbon Dioxide 28 mmol/L (22-29); Chloride 103 mmol/L (98-107); Estimated GFR 89; Globulin 4.3 g/dL (2.4-3.5); Glucose 95 mg/dL (70-105); Potassium 3.9 mmol/L (3.5-5.1); Protein, Total 7.9 g/dL (6.0-8.3); Sodium 138 mmol/L (136-145)
[2023-06-30 21:17] LABS: Band 2 % (5-11); CellaVision Operator ID lab.abc; Eosinophils 2 % (0-10); Lymphocytes 27 % (21-51); Monocytes 9 % (0-10); Neutrophil 52 % (42-75); Platelet Adequacy Comment Platelets Normal; RBC Morphology Within Normal Limits; Reactive Lymphocytes 7 % (0-10); Total Cell Count 100
[2023-06-30 21:32] LABS: SARS-CoV-2 NAA Rapid Test Not Detected (NotDetected)
== END 2023-06-30 23:33 | disposition home or self-care (01) ==
LOC: ERS 17:38
DX: B34.9 Viral infection, unspecified (principal); E11.9 Type 2 diabetes mellitus without complications; Z20.822 Contact with and (suspected) exposure to COVID-19
CPT/HCPCS: 36415; 70492; 71045; 80053; 84703; 85025; 86140; 87081; 87430; Q9967

== ENCOUNTER 2023-10-05 19:00 | Emergency (ER) | payer OTHER ==
[2023-10-05 20:54] LABS: Influenza A by NAA Not Detected (NotDetected); Influenza B by NAA Not Detected (NotDetected); SARS-CoV-2 NAA Rapid Test Not Detected (NotDetected)
== END 2023-10-05 21:42 | disposition home or self-care (01) ==
LOC: ERS 19:00
DX: J02.9 Acute pharyngitis, unspecified (principal); B37.0 Candidal stomatitis; E11.9 Type 2 diabetes mellitus without complications; K21.9 Gastro-esophageal reflux disease without esophagitis; G43.909 Migraine, unspecified, not intractable, without status migrainosus; Z55.6 Problems related to health literacy; Z79.899 Other long term (current) drug therapy
CPT/HCPCS: 71046

== ENCOUNTER 2024-03-31 18:53 | Emergency (ER) | payer OTHER ==
[2024-03-31 20:10] LABS: Bacteria/HPF 1+ HPF (None Seen); Bilirubin Negative (Negative); Blood, Urine Trace (Negative); CAUTI Indications for Culture Dysuria,urgency,freq; Clarity Clear (Clear); Glucose, Urine (Dipstick) Normal (Negative); Ketone, Urine Trace mg/dL (Negative); Leukocyte 500 Leu/uL (Negative); Nitrite Negative (Negative); Protein, Urine (Dipstick) 30 mg/dL (Neg-Trace); Specific Gravity, Urine 1.037 (1.002-1.036); Squamous Epithelial 0-3 HPF (0-3); Transitional Epithelial 0-3 HPF (None Seen); WBC/HPF Greater than 50 HPF (0-3); pH, Urine 5.5 (5.0-9.0)
[2024-03-31 20:12] LABS: Urine Culture Reflex Yes Yes
== END 2024-03-31 21:51 | disposition home or self-care (01) ==
LOC: ERS 18:53
DX: J06.9 Acute upper respiratory infection, unspecified (principal); N39.0 Urinary tract infection, site not specified; E11.9 Type 2 diabetes mellitus without complications; K21.9 Gastro-esophageal reflux disease without esophagitis; Z79.899 Other long term (current) drug therapy
CPT/HCPCS: 81001; 87077; 87086; 87186; 99283

== ENCOUNTER 2024-08-29 04:38 | Emergency (ER) | payer OTHER ==
[2024-08-29] MEDS ORDERED: Ketorolac Tromethamine 30 MG (1 mL) VIAL ONE (04:52)
[2024-08-29] MEDS ORDERED: Morphine 4 MG/ML VIAL ONE (04:52)
[2024-08-29] MEDS ORDERED: Ondansetron PF 4 MG/2 ML Vial ONE (04:52)
[2024-08-29 05:17] LABS: #Basophils Less than 0.03 10x3/uL (0.0-0.2); %Basophils 0.2 % (0.0-1.0); %Eosinophils 0.4 % (0.0-10.0); %Lymphocytes 48.2 % (21.0-51.0); %Monocytes 7.5 % (0.0-10.0); %Neutrophils 43.5 % (42.0-75.0); Mean Corpuscular HGB CONC 32.5 g/dL (32.0-36.0); Mean Corpuscular Hemoglobin 26.4 pg (27.0-31.0); Mean Corpuscular Volume 81.1 fL (78.0-98.0); Mean Platelet Volume 9.1 fL (7.4-10.4); Platelet Count 336 10x3/uL (130-400); RBC Distribution Width 14.7 % (11.5-14.5); Red Blood Cell (RBC) Count 4.93 mill/uL (4.20-5.40)
[2024-08-29 05:37] LABS: ALT (SGPT) 12 U/L (8-55); AST (SGOT) 18 U/L (5-34); Albumin 3.8 g/dL (3.5-5.0); Alkaline Phosphatase 118 U/L (40-110); Anion Gap 15 mmol/L (10-20); BUN (Urea Nitrogen) 10 mg/dL (9.8-20.1); Bilirubin, Total 0.7 mg/dL (0.2-1.2); CK (CPK) 101 U/L (29-168); Calc. Creatinine Clearance 0 mL/min (70-130); Calcium 9.8 mg/dL (7.8-10.44); Carbon Dioxide 27 mmol/L (22-29); Chloride 101 mmol/L (98-107); Estimated GFR 105; Globulin 5.5 g/dL (2.4-3.5); Glucose 103 mg/dL (70-105); Lipase 16 U/L (8-78); Potassium 3.4 mmol/L (3.5-5.1); Protein, Total 9.3 g/dL (6.0-8.3); Sodium 140 mmol/L (136-145)
[2024-08-29 05:41] LABS: Troponin I 0.015 ng/mL (< 0.028)
[2024-08-29 06:08] LABS: Bilirubin Negative (Negative); Blood, Urine Negative (Negative); Glucose, Urine (Dipstick) Negative (Negative); Ketone, Urine Trace mg/dL (Negative); Leukocyte Negative (Negative); Nitrite Negative (Negative); Protein, Urine (Dipstick) 30 mg/dL (Neg-Trace); Specific Gravity, Urine 1.015 (1.005-1.030); pH, Urine 7.5 (5.0-9.0)
[2024-08-29 06:16] LABS: Clarity Clear (Clear)
[2024-08-29 06:17] LABS: CAUTI Indications for Culture Pelvic or flank pain; Other Microscopic Description Less than 2 mL rec'd; WBC/HPF 0-3 HPF (0-3)
[2024-08-29 06:18] LABS: Urine Culture Reflex No No
[2024-08-29] MEDS ORDERED: Iopamidol-370 76% 500 ML MDV (1 ML CHARGE) ONE (11:06)
== END 2024-08-29 08:19 | disposition home or self-care (01) ==
LOC: ERS 04:38
DX: R10.33 Periumbilical pain (principal); R11.2 Nausea with vomiting, unspecified; E11.9 Type 2 diabetes mellitus without complications; Z79.85 Long-term (current) use of injectable non-insulin antidiabetic drugs
CPT/HCPCS: 71045; 74177; 80053; 81001; 82550; 83690; 83735; 84484; 85025; 93005; 96361; 96374; 96375; J1885; J2270; J2405

== ENCOUNTER 2025-05-17 10:08 | Outpatient (CLI) | payer MEDICAID | END 2025-05-17 10:09 | disposition home or self-care (01) | LOC: BICRAD 10:08 | PROVIDERS: ATTEND Specialist | DX: M54.2 Cervicalgia (principal) | CPT/HCPCS: 72040 ==